=== PATIENT | female | born 1995 | race Caucasian/White ===

== ENCOUNTER 2018-12-30 22:54 | Observation (INO) | payer OTHER ==
[2018-12-30] MEDS ORDERED: NS 1,000 ML IV ONE ×2 (23:07)
[2018-12-30] MEDS ORDERED: IBUPROFEN 800 MG TAB PO ONE (23:08)
[2018-12-30] MEDS ORDERED: ACETAMINOPHEN 500 MG TAB PO ONE (23:08)
[2018-12-30] MEDS ORDERED: IPRATROPIUM/ALBUTEROL 3 ML DEYVIAL IH ONE (23:10)
--- NOTE | 2018-12-30 23:13 | EDPHY ---
H & P Stated Complaint: Fever Time Seen by Provider: 12/30/18 23:11 HPI/ROS: HPI CHIEF COMPLAINT: Fever and cough. HISTORY OF PRESENT ILLNESS: This is a 23-year-old female she is otherwise healthy, states for the last 24 hr she has been feeling rather ill. She reports fever, muscle aches, joint pain, generalized weakness and fatigue. Additionally a cough. Patient states she did not get a flu shot this year. She arrives to the emergency room is noted be tachycardic, febrile. She last took Motrin around 10:00 p.m.. Denies productive cough. Denies abdominal pain diarrhea or vomiting. Denies chest pain. Past Medical History: No significant medical history Past Surgical History: No significant surgical history Social History: Denies drugs alcohol tobacco. Family History: Noncontributory ROS REVIEW OF SYSTEMS: 10 Systems were reviewed and negative with the exception of the elements mentioned in the history of present illness. Exam Constitutional triage nursing summary reviewed, vital signs reviewed, awake/ alert. Vital signs at triage tachycardic 160s, temperature 39 degrees. Eyes normal conjunctivae and sclera, EOMI, PERRLA. HENT normal inspection, atraumatic, moist mucus membranes, no epistaxis, neck supple/ no meningismus, no raccoon eyes. Respiratory bronchitic sounding cough on exam faint wheezing. Cardiovascular tachycardia, regular rhythm, no murmur, no edema, distal pulses normal. Gastrointestinal soft, non-tender, no rebound, no guarding, normal bowel sounds, no distension, no pulsatile mass. Genitourinary no CVA tenderness. Musculoskeletal no midline vertebral tenderness, full range of motion, no calf swelling, no tenderness of extremities, no meningismus, good pulses, neurovascularly intact. Skin pink, warm, & dry, no rash, skin atraumatic. Neurologic awake, alert and oriented x 3, AAOx3, moves all 4 extremities equally, motor intact, sensory intact, CN II-XII intact, normal cerebellar, normal vision, normal speech. Psychiatric normal mood/affect. Heme/Lymph/Immune no lymphadenopathy. Differential Diagnosis: Includes but is not limited to in a particular order acute viral illness, URI, viral syndrome, viral pneumonia, bacterial pneumonia, influenza, dehydration Medical Decision Making: Plan for this patient IV establishment IV fluid bolus 2 L normal saline, Tylenol Motrin for fever control, chest x-ray, DuoNeb breathing treatment, influenza, basic blood work and re-evaluate. Re-evaluation: EKG interpretation by me on record in [facility] system. Impression time of EKG 004, sinus tach 144, no signs of acute arrhythmia. Patient is influenza a positive. 0113: Patient continues to be tachycardic in the 140s 150s. I believe her to be volume depleted and dehydrated. I have ordered her 3rd L fluid. She is influenza a positive. Plan for hospital admission for influenza and ongoing tachycardia, dehydration. Patient agrees for hospital admission. Dr. Rooney agrees to admit. Admit for : Tachycardia, fever, dehydration, influenza a. Source: Patient - Personal History LMP (Females 10-55): 22-28 Days Ago Current Tetanus/Diphtheria Vaccine: Yes Current Tetanus Diphtheria and Acellular Pertussis (TDAP): Yes - Medical/Surgical History Hx Asthma: No Hx Chronic Respiratory Disease: No Hx Diabetes: No Hx Cardiac Disease: No Hx Renal Disease: No Hx Cirrhosis: No Hx Alcoholism: No Hx HIV/AIDS: No Hx Splenectomy or Spleen Trauma: No Other PMH: Transgender - Social History Smoking Status: Never smoked Constitutional: Initial Vital Signs Temperature (C) 38.9 C H 12/30/18 23:01 Heart Rate 164 H 12/30/18 23:01 Respiratory Rate 18 12/30/18 23:01 Blood Pressure 117/79 12/30/18 23:01 O2 Sat (%) 95 12/30/18 23:01 O2 Delivery Mode Room Air Allergies/Adverse Reactions: No Known Allergies Allergy (Unverified 12/30/18 23:00) Home Medications: Medication Instructions Recorded Testosterone Cypionate 0.5 ml IM Q14D 12/31/18 Medical Decision Making - Data Points Laboratory Results: Laboratory Results 12/30/18 23:15 12/30/18 23:15 Medications Given: Acetaminophen (Tylenol) 650 mg PO Q4HRS PRN PRN Reason: Pain, Mild/Fever, Can Take PO Stop: 06/29/19 01:20 Last Admin: 12/31/18 21:31 Dose: 650 mg Guaifenesin/Codeine Phosphate (Robitussin Ac) 10 ml PO Q6HRS PRN PRN Reason: Cough, Moderate Stop: 06/29/19 12:17 Last Admin: 12/31/18 19:57 Dose: 10 ml Sodium Chloride (Ns) 1,000 mls @ 100 mls/hr IV CONT PAULA Stop: 06/29/19 01:29 Last Admin: 12/31/18 21:31 Dose: 1,000 mls Ibuprofen (Motrin) 400 mg PO Q4HRS PRN PRN Reason: Pain, Mild/Fever, Can Take PO Stop: 06/29/19 01:20 Last Admin: 12/31/18 19:55 Dose: 400 mg Ondansetron HCl (Zofran Odt) 4 mg PO Q4HRS PRN PRN Reason: Nausea/Vomiting, Use 1st Stop: 06/29/19 01:20 Last Admin: 12/31/18 19:06 Dose: 4 mg Oseltamivir Phosphate (Tamiflu) 75 mg PO BIDMEAL PAULA Stop: 01/04/19 18:01 Last Admin: 12/31/18 18:10 Dose: 75 mg Throat Lozenges (Cepacol Lozenge) 1 ea PO PRN PRN PRN Reason: Sore Throat Stop: 06/29/19 12:17 Last Admin: 12/31/18 20:04 Dose: 1 ea Discontinued Medications Acetaminophen (Tylenol) 1,000 mg PO EDNOW ONE Stop: 12/30/18 23:09 Last Admin: 12/30/18 23:22 Dose: 1,000 mg Albuterol/Ipratropium (Duoneb) 3 ml IH EDNOW ONE Stop: 12/30/18 23:11 Last Admin: 12/30/18 23:22 Dose: 3 ml Sodium Chloride (Ns) 1,000 mls @ 0 mls/hr IV EDNOW ONE; Wide Open PRN Reason: Protocol Stop: 12/30/18 23:08 Last Admin: 12/30/18 23:15 Dose: 1,000 mls Sodium Chloride (Ns) 1,000 mls @ 0 mls/hr IV EDNOW ONE; Wide Open PRN Reason: Protocol Stop: 12/30/18 23:08 Last Admin: 12/30/18 23:15 Dose: 1,000 mls Sodium Chloride (Ns) 1,000 mls @ 0 mls/hr IV ONCE ONE PRN Reason: Wide Open Stop: 12/31/18 01:05 Last Admin: 02/16/19 01:14 Dose: 1,000 mls Ibuprofen (Motrin) 800 mg PO EDNOW ONE Stop: 12/30/18 23:09 Last Admin: 12/30/18 23:22 Dose: 800 mg Oseltamivir Phosphate (Tamiflu) 75 mg PO EDNOW ONE Stop: 12/31/18 00:58 Last Admin: 12/31/18 00:59 Dose: 75 mg Departure - Departure Disposition: [facility] Acute Clinical Impression: Influenza A, Tachycardia, Dehydration Condition: Good
[2018-12-30 23:48] LABS: PLATELET COUNT 259 10^3/uL (150-400)
[2018-12-31] MEDS ORDERED: OSELTAMIVIR PHOSPHATE 75 MG CAP PO ONE (00:57)
[2018-12-31] MEDS ORDERED: NS 1,000 ML IV ONE (01:04)
[2018-12-31] MEDS ORDERED: ONDANSETRON 4 MG/2 ML VIAL IVP PRN (01:21)
[2018-12-31] MEDS ORDERED: LORazepam 0.5 MG TAB PO PRN (01:21)
[2018-12-31] MEDS: ONDANSETRON DISINTEGRATING 4 MG TAB PO PRN ×2 (04:12→19:06)
[2018-12-31] MEDS: NS 1,000 ML IV SCH ×3 (04:32→21:31)
--- NOTE | 2018-12-31 06:22 | GHP ---
[f rep st] HISTORY AND PHYSICAL DATE OF ADMISSION: 12/31/2018 PCP: Unlisted. SOURCE: Patient provides history, appears reliable. EMR was reviewed and case discussed with ED provider. CHIEF COMPLAINT: Cough, shortness of breath. HISTORY OF PRESENT ILLNESS: This is a very pleasant 23-year-old transgender now male goes by Robin, who presents to the emergency department today with complaints of 24 hours of malaise, generalized weakness, fatigue, and cough. The patient reports that he had traveled out of town to visit his grandmother and was likely exposed to traveler's with upper respiratory symptoms. Patient denies any fevers or chills until he arrived to the emergency department. He has had some nausea and myalgias. The patient denies any chest pain or palpitations. He did not receive the flu shot this year. The patient has been trying to take Motrin for his symptoms without improvement. Denies any nausea, vomiting, or diarrhea. No abdominal pain. Has had decreased appetite and oral intake. PAST MEDICAL HISTORY: Significant for anxiety, on testosterone supplementation. MEDICATIONS: Testosterone. PAST SURGICAL HISTORY: Patient denies. FAMILY HISTORY: Father , age mid 50s due to [place]. SOCIAL HISTORY: The patient denies any drugs, tobacco, or alcohol. CODE STATUS: Full. REVIEW OF SYSTEMS: Ten systems reviewed, negative except as above. PHYSICAL EXAMINATION: VITAL SIGNS: Upon arrival to the emergency department, blood pressure is 117/79, heart rate 164, temperature 38.9, O2 saturation 95% on room air. VITALS: Currently available, blood pressure is 109/84, heart rate 129, respiratory rate 21, O2 saturation 96% on room air, temperature 36.8. GENERAL: No acute distress. Pleasant, obese young adult is lying quietly in bed. Does appear acutely ill, but nontoxic. Does appear fatigued. HEAD: Normocephalic, atraumatic. EYES: Extraocular muscles are grossly intact. Pupils are equal, round, decreased reactive bilaterally, but symmetric. No scleral icterus or conjunctival injection. ENT: Mucous membranes appear slightly dry. No oropharyngeal erythema or exudate. NECK: Supple. Trachea midline. CARDIOVASCULAR: Tachycardic with regular rhythm. No murmurs, rubs, or gallops appreciated. RESPIRATORY: Unlabored breathing. Lungs are clear to auscultation bilaterally. No wheezes, rales, or rhonchi. Patient does have intermittent congested-sounding cough but nonproductive. ABDOMEN: Obese, soft , nontender to palpation. No rebound, guarding, or masses appreciated. : No suprapubic tenderness to palpation. No Kelly catheter in place. MUSCULOSKELETAL: The patient moves all extremities. Sits up independently. NEUROLOGIC: Grossly nonfocal. No facial drooping. Moves extremities as noted above. PSYCHIATRIC: The patient does appear acutely ill. Affect slightly flat , but pleasant and cooperative. LABORATORY STUDIES: WBC 8.96, H and H is 15.4 and 45.4, MCV of 85.3, platelet count is 259, neutrophil percent 81.5, no bands. Sodium is 139, potassium 4.3, chloride 109, CO2 is 22, anion gap 8, BUN 9, creatinine 0.8, GFR greater than 60 , glucose is 106, calcium 9.3. Flu A positive. Chest x-ray: No consolidations. Chest x-ray image reviewed myself; report is still pending. EKG reviewed myself showing sinus tachycardia in the 140s. QTc is 595. The patient with Q-wave in lead 3. No acute ST changes. ASSESSMENT AND PLAN: A 23-year-old with no significant past medical history, presents to the emergency department with complaints of cough, fatigue, and generalized weakness. 1. Flu A. Continue Tamiflu. Isolation precautions. Supportive care. 2. Tachycardia secondary to flu. The patient without any hypoxia. Chest x- ray appears clear. Continue with IV fluid hydration, monitor on telemetry until heart rate improves. Blood pressures at this time are low normal, but patient asymptomatic otherwise. We will continue to monitor closely. 3. Fluids, electrolytes, and nutrition. IV fluids overnight. Patient is status post 3 L in the emergency department, still appear slightly dry. Patient not tolerating a significant amount of oral hydration due to nausea. Advance diet as tolerated. 4. Prophylaxis. SCDs. Overall low risk. Holding anticoagulation. 5. Core status. Full. 6. Disposition. Patient admitted to observation status on the medical/ surgical floor for supportive care and monitoring of tachycardia as noted above. /[id number]/MODL MTDD
--- NOTE | 2018-12-31 07:34 | CPEKG ---
Test Reason : OPEN Blood Pressure : / mmHG Vent. Rate : 144 BPM Atrial Rate : 147 BPM P-R Int : 109 ms QRS Dur : 074 ms QT Int : 384 ms P-R-T Axes : 041 019 050 degrees QTc Int : 595 ms Sinus tachycardia Probable left atrial enlargement Prolonged QT interval Confirmed by El Og ([id number]) on 12/31/2018 7:34:01 AM Referred By: El Og Confirmed By:El Og
[2018-12-31] MEDS: OSELTAMIVIR PHOSPHATE 75 MG CAP PO SCH ×2 (08:08→18:10)
[2018-12-31] MEDS: ACETAMINOPHEN 325 MG TAB PO PRN ×3 (12:33→21:31)
[2018-12-31] MEDS: guaiFENesin/CODEINE PHOS 10 ML UDCUP PO PRN ×2 (13:16→19:57)
[2018-12-31] MEDS: CEPACOL LOZENGE PO PRN ×4 (13:17→20:04)
--- NOTE | 2018-12-31 15:00 | ASMTCMCOM ---
CM Note CM Note Notes: Pt is a 23 y/o female who came to the ED with flu symptoms and tachycardia. She has a hx of anxiety and is on testosterone supplementation. Pt lives independently and works at [employer]. PT/OT evals not ordered. No CM needs identified; CM will follow for change. D/C Plan: Independent. Date Signed: 12/31/2018 02:59 PM Electronically Signed By:Edelmira Amaya
[2018-12-31] MEDS: IBUPROFEN 200 MG TAB PO PRN ×2 (15:14→19:55)
--- NOTE | 2018-12-31 15:47 | HOSPPROG ---
Hospitalist Progress Note Assessment/Plan: 23 yo transgender M presenting with fever/aches and influenza A # influenza A: started on tamiflu, remains symptomatically ill with ongoing fever, body aches and malaise. Continue supportive care. Peronsally reviewed cxr without e/o pna # tachycardia: in the setting of above and fever, monitoring, IVF # sepsis: fever and tachycardia in the setting of influenza, HD stable # observation status Objective: Vital Signs Temp Pulse Resp BP Pulse Ox 37.2 C 144 H 24 H 127/64 H 93 12/31/18 13:21 12/31/18 12:00 12/31/18 12:00 12/31/18 12:00 12/31/18 12:00 12/30/18 12/31/18 01/01/19 05:59 05:59 05:59 Intake Total 3620 300 Output Total 700 Balance 3620 -400 ICD10 Worksheet Patient Problems: Problems Problem Status Onset Influenza A Acute Tachycardia Acute Dehydration Acute
[2019-01-01] MEDS: CEPACOL LOZENGE PO PRN ×4 (03:16→19:40)
[2019-01-01] MEDS: guaiFENesin/CODEINE PHOS 10 ML UDCUP PO PRN ×3 (03:16→15:28)
[2019-01-01] MEDS: IBUPROFEN 200 MG TAB PO PRN ×4 (06:01→22:34)
[2019-01-01] MEDS: NS 1,000 ML IV SCH ×2 (06:13→15:29)
[2019-01-01] MEDS: ACETAMINOPHEN 325 MG TAB PO PRN ×3 (09:25→19:40)
[2019-01-01] MEDS: OSELTAMIVIR PHOSPHATE 75 MG CAP PO SCH ×2 (09:25→18:27)
--- NOTE | 2019-01-01 14:26 | HOSPPROG ---
Hospitalist Progress Note Assessment/Plan: 23 yo transgender M (goes by Robin) presenting with fever/aches and influenza A # influenza A: started on tamiflu, remains symptomatically ill with ongoing fever, body aches and malaise. Continue supportive care. Peronsally reviewed cxr without e/o pna # tachycardia: in the setting of above and fever, monitoring, IVF, continues to be tachy but improving--consider r/o PE if no improvement overnight # hypoxia: mild hypoxia developing--89% on RA, suspect likely due to atelectasis however consider repeat imaging as above if not improving overnight # sepsis: fever and tachycardia in the setting of influenza, HD stable # observation status Patient new to my care. Old records reviewed and summarized as above. Subjective: patient continues to fever intermittently, continues to feel very poorly--achy all over, sore throat, fatigued Objective: Vital Signs Temp Pulse Resp BP Pulse Ox 37.5 C 102 H 18 115/72 94 01/01/19 11:39 01/01/19 12:51 01/01/19 11:39 01/01/19 11:39 01/01/19 11:39 Laboratory Results 01/01/19 04:50 01/01/19 04:50 12/31/18 01/01/19 01/02/19 05:59 05:59 05:59 Intake Total 3620 2300 500 Output Total 2250 Balance 3620 50 500 awake alert anicteric op clear, mild pharyngeal erythema without exudate tachy regular no mrg no edema cta with dec bs at bases soft nt nd no cce warm dry well perfused oriented appropriate - Time Spent With Patient Time Spent with Patient: greater than 35 minutes Time Spent with Patient: Greater than 35 minutes spent on this patients care, greater than 50% of time spent counseling, educating, and coordinating care regarding the above mentioned plan. ICD10 Worksheet Patient Problems: Problems Problem Status Onset Influenza A Acute Tachycardia Acute Dehydration Acute
[2019-01-01] MEDS: ONDANSETRON DISINTEGRATING 4 MG TAB PO PRN (16:51)
[2019-01-02] MEDS: guaiFENesin/CODEINE PHOS 10 ML UDCUP PO PRN ×2 (01:43→09:23)
[2019-01-02] MEDS: ACETAMINOPHEN 325 MG TAB PO PRN (04:40)
[2019-01-02] MEDS: OSELTAMIVIR PHOSPHATE 75 MG CAP PO SCH (09:23)
[2019-01-02] MEDS: IBUPROFEN 200 MG TAB PO PRN (09:23)
[2019-01-02] MEDS: CEPACOL LOZENGE PO PRN (09:23)
--- NOTE | 2019-01-02 10:25 | HOSPPROG ---
Hospitalist Progress Note Assessment/Plan: 23 yo transgender M (goes by Robin) presenting with fever/aches and influenza A. First encounter, chart reviewed # influenza A: - tamiflu # tachycardia - Heart rate increases to 120 w talking -will get a CTA to r/o any PE -also patient is on testosterone # hypoxia -on room air # sepsis: fever and tachycardia in the setting of influenza, HD stable # observation status #plan: get a CTA to assure stability Subjective: Robin is feeling better today, no complaints. Objective: Vital Signs Temp Pulse Resp BP Pulse Ox 36.8 C 97 16 124/84 H 94 01/02/19 07:49 01/02/19 07:49 01/02/19 07:49 01/02/19 07:49 01/02/19 07:49 Laboratory Results 01/01/19 04:50 01/01/19 04:50 01/01/19 01/02/19 01/03/19 05:59 05:59 05:59 Intake Total 2300 1808 Output Total 2250 200 Balance 50 1808 -200 - Physical Exam Constitutional: no apparent distress, appears nourished, not in pain Eyes: PERRL Ears, Nose, Mouth, Throat: hearing normal Cardiovascular: regular rate and rhythym, tachycardia Respiratory: no respiratory distress, reduced air movement (bases) Gastrointestinal: normoactive bowel sounds Skin: warm, normal color Musculoskeletal: full muscle strength Neurologic: AAOx3 Psychiatric: interacting appropriately ICD10 Worksheet Patient Problems: Problems Problem Status Onset Dehydration Acute Influenza A Acute Tachycardia Acute
[2019-01-02] MEDS ORDERED: IOHEXOL 350mgI/ML (OMNIPAQUE) 150 ML BTL IV ONE (11:18)
[2019-01-02] MEDS: ONDANSETRON DISINTEGRATING 4 MG TAB PO PRN (14:47)
[2019-01-02 15:51] VITALS: BP 115/84
--- NOTE | 2019-01-02 16:05 | GDS ---
[f rep st] DISCHARGE SUMMARY DISCHARGE DIAGNOSES: 1. Influenza A. 2. Tachycardia. 3. Hypoxemia. 4. Sepsis. HISTORY OF PRESENT ILLNESS: Briefly, the patient is a 23-year-old transgender male who presented to the emergency room with fever, aches, and was noted to have influenza A. the patient overall slowly improved, but had persistent tachycardia. A CTA was performed today that was negative for any type of blood clot, but it shows subtle ground-glass and tree-in-bud opacities in the upper lobes compatible with viral bronchiolitis/pneumonitis, given the patient's history of influenza. It also notes prominent bilateral hilar lymph nodes, likely reactive in the nature and in the setting of an active infection, sarcoidosis or malignancy are much less likely. Recommendation is a followup CT to confirm resolution. HOSPITAL COURSE BY PROBLEM: 1. Influenza A. The patient is feeling markedly better. I have given the patient some followup contacts. 2. Tachycardia, resolved overall. 3. Hypoxemia on room air. 4. Sepsis, hemodynamically patient is stable. DISCHARGE CONDITION: Stable. Blood pressure is 107/76, heart rate 96, respiratory rate of 20, O2 sats on room air ranging 90% to 95%, temperature is 36.5 Celsius. MEDICATIONS AT DISCHARGE: Please see the EMR. DISCHARGE INSTRUCTIONS: 1. To stay well hydrated and drink lots of fluids. 2. To alternate Tylenol and Motrin for fever and pain control. 3. Tamiflu as prescribed. A script was sent to [facility] here in the hospital. 4. Return to the ER with worsening symptoms including high fever, vomiting, not doing well. 5. Make an appointment to follow up with either Dr. Anita Abraham or Dr. Zenobia Cardozo. 6. Repeat CT scan in 6-8 weeks. /[id number]/MODL MTDD
== END 2019-01-02 18:12 | disposition home or self-care (01) ==
LOC: F3N 12-31 02:34
PROVIDERS: ADMIT Family Medicine; ATTEND Internal Medicine
DX: A41.89 Other specified sepsis (principal); J10.1 Influenza due to other identified influenza virus with other respiratory manifestations; R09.02 Hypoxemia; E86.0 Dehydration; F64.9 Gender identity disorder, unspecified; Z82.49 Family history of ischemic heart disease and other diseases of the circulatory system
CPT/HCPCS: 71045; 71275; 93005; 96360; 96361; 99285; G0378; Q9967